=== PATIENT | male | born 1990 | race Caucasian/White ===

== ENCOUNTER 2022-09-17 05:11 | Emergency (ER) | payer OTHER ==
[~2022-09-17] VITALS: Ht 172.7 cm; Wt 86.4 kg
[2022-09-17 05:17] VITALS: BP 127/72; PULSE 110; RESP 18; TEMP 98.5
[2022-09-17 06:40] LABS: COVID AG,FIA SOURCE NASOPHARYNGEAL
[2022-09-17] MEDS ORDERED: IBUPROFEN 600 MG TABLET PO ONE (06:45)
[2022-09-17] MEDS ORDERED: AMOX TR/POT CLAV 875 MG/125 MG TABLET PO ONE (06:45)
[2022-09-17 06:58] LABS: RAPID GROUP A STREP NEGATIVE (NEGATIVE)
[2022-09-17 07:05] LABS: INFLUENZA TYPE A NEGATIVE FOR TYPE A (NEGATIVE); INFLUENZA TYPE B NEGATIVE FOR TYPE B (NEGATIVE)
[2022-09-17] MEDS ORDERED: IBUP-1492 PO (07:08)
[2022-09-17] MEDS ORDERED: AMOX1TAB16 PO (07:08)
== END 2022-09-17 07:15 | disposition home or self-care (01) ==
LOC: EMS 05:12
DX: J03.90 Acute tonsillitis, unspecified (principal); Z20.822 Contact with and (suspected) exposure to COVID-19
CPT/HCPCS: 87430; 87804; 99283